=== PATIENT | female | born 1950 | race Caucasian/White ===

== ENCOUNTER → 2017-06-21 | Outpatient (CLI) | payer OTHER ==
[2017-06-21 10:07] LABS: ALBUMIN 3.8 g/dL (3.4-5.0); CALCIUM 9.7 mg/dL (8.5-10.1); CREATININE 6.6 mg/dL (0.6-1.0); GFR 6.3; PHOSPHORUS 6.9 mg/dL (2.6-4.7)
[2017-06-21 10:09] LABS: POTASSIUM 5.5 mmol/L (3.5-5.1)
== END | disposition home or self-care (01) ==
LOC: LAB 09:14
PROVIDERS: ATTEND Internal Medicine Nephrology
DX: N18.5 Chronic kidney disease, stage 5 (principal)
CPT/HCPCS: 36415; 80069

== ENCOUNTER → 2017-06-28 | Outpatient (CLI) | payer OTHER ==
--- NOTE | 2017-06-28 11:27 | RAD ---
Chest, 3 views, 06/28/2017: History: Chronic kidney disease, hypertension PA and lateral views of the chest as well as an apical lordotic view were obtained as requested. The heart size and pulmonary vascularity are normal. There is a calcified granuloma in the right midlung. No acute infiltrates are seen. No apical infiltrate or mass is evident. No pleural fluid is detected. Mild spurring is present in the spine. IMPRESSION: No acute cardiopulmonary abnormality is detected.
== END | disposition home or self-care (01) ==
LOC: RAD 10:15
PROVIDERS: ATTEND Internal Medicine Nephrology
DX: N18.5 Chronic kidney disease, stage 5 (principal); I10 Essential (primary) hypertension
CPT/HCPCS: 71021

== ENCOUNTER 2017-07-13 07:47 | Day surgery (SDC) | payer OTHER ==
[~2017-07-13] VITALS: Ht 172.7 cm; Wt 99.8 kg
[~2017-07-13 07:47] MED LIST: ACET325T9 PO; ALLO100T PO; AMLO5TAB2 PO; ATEN50TA PO; BUPIVAC MPF-EPI 0.5%-1:200000 30 ML VIAL. ONE; FURO40TA4 PO; HEPARIN SODIUM 5,000 UNIT in IV NORMAL SALINE 500ML BAG 500 ML IRR ONE; HYDROmorphone 2 MG/ML VIAL IV PRN; IV RINGERS,LACTATED 1000ML 1,000 ML IV SCH; LIDOCAINE 1% 1 ML SYRINGE. ID PRN; LOSA100T6 PO; MORPHINE SULFATE 2 MG/ML DISP.SYRIN. IV PRN; NEOMY/BACITR/POLYMYXIN OINT PACKET. TP ONE; ONDANSETRON PF 4 MG/2 ML VIAL. IV PRN; PROCHLORPERAZINE 10 MG/2 ML VIAL. IV PRN; SEVE800T9 PO; fentaNYL PF VIAL 100 MCG/2 ML VIAL IV PRN; sodium bicarbonate
[2017-07-13 08:30] LABS: BASO # 0.1 x10^3/uL (0.0-0.2); BASO % 1 % (0-3); EOS % 3 % (0-3); HEMATOCRIT 34.9 % (36.0-47.0); HEMOGLOBIN 11.4 g/dL (12.0-15.5); LYMPH # 1.5 x10^3/uL (1.0-4.8); LYMPH % 15 % (24-48); MEAN CORPUSCULAR HEMOGLOBIN 28 pg (25-35); MEAN CORPUSCULAR HGB CONC 33 g/dL (31-37); MEAN CORPUSCULAR VOLUME 87 fL (79-100); MONO % 5 % (0-9); NEUT % 76 % (31-73); PLATELET COUNT 189 x10^3/uL (140-400); RED BLOOD COUNT 4.03 x10^6/uL (3.50-5.40); WHITE BLOOD COUNT 9.9 x10^3/uL (4.0-11.0)
[2017-07-13 08:40] LABS: ALBUMIN 3.8 g/dL (3.4-5.0); CALCIUM 9.1 mg/dL (8.5-10.1); CREATININE 6.4 mg/dL (0.6-1.0); GFR 6.6; POTASSIUM 4.4 mmol/L (3.5-5.1)
[2017-07-13] MEDS ORDERED: IV NORMAL SALINE 1000ML BAG 1,000 ML IV SCH (08:45)
[2017-07-13] MEDS ORDERED: PROPOFOL 20 ML IV ONE (08:53)
[2017-07-13] MEDS ORDERED: fentaNYL PF VIAL 100 MCG/2 ML VIAL ONE ×2 (08:53→10:42)
[2017-07-13] MEDS ORDERED: LIDOCAINE 2% PF Vial for OR 5 ML VIAL. ONE (08:53)
[2017-07-13] MEDS ORDERED: DESFLURANE 61 TO 120 MINUTES IH ONE (08:53)
[2017-07-13] MEDS ORDERED: DEXAMETHASONE SOD PHOS 20 MG/5 ML VIAL. ONE (08:53)
[2017-07-13] MEDS ORDERED: ONDANSETRON PF 4 MG/2 ML VIAL. ONE (08:53)
[2017-07-13] MEDS ORDERED: ROCURONIUM 100 MG/10 ML VIAL. ONE (08:56)
[2017-07-13] MEDS ORDERED: NEOSTIGMINE 10 MG/10 ML VIAL. ONE (09:36)
[2017-07-13] MEDS ORDERED: GLYCOPYRROLATE 1 MG/5 ML VIAL. ONE (09:36)
--- NOTE | 2017-07-13 11:22 | PDOC ---
BRIEF OPERATIVE NOTE Date: Jul 13, 2017 Pre-Op Diagnosis ESRD Post-Op Diagnosis same, umbilical hernia, adhesions Procedure Performed l/s placement of PD catheter, SULMA, primary repair of umbilical hernia Surgeon Genaro Anesthesia Type: General Blood Loss 20cc IV Fluid 800cc Specimens Obtained umbilical hernia sack Findings umbilical hernia, small bowel adhesions to the lower abdominal wall Complications none IRMA HANLEY MD Jul 13, 2017 11:22
--- NOTE | 2017-07-13 11:23 | DISCH ---
DISCHARGE INSTRUCTIONS Condition on Discharge Condition on Discharge: Stable Activity After Discharge Activity Instructions for Disc: Activity as tolerated, Avoid exertion Lifting Instructions after Dis: No heavy lifting Driving Instructions after Dis: Do not drive today Diet after Discharge Diet after Discharge: Regular Wound Incision Care Wound/Incision Care: Ice to area for comfort Other wound/incision instructi: keep dressin on til visit to dialysis center Follow-Up Follow Up With: Genaro two weeks IRMA HANLEY MD Jul 13, 2017 11:23
[2017-07-13 11:44] VITALS: BP 109/59
[2017-07-13] MEDS ORDERED: ceFAZolin 2GM PREMIX 2 GM/50 ML BAG IV ONE (12:00)
--- NOTE | 2017-07-13 15:31 | OP ---
DATE OF SURGERY: 07/13/2017 PREOPERATIVE DIAGNOSIS: End-stage renal disease. POSTOPERATIVE DIAGNOSES: End-stage renal disease with abdominal adhesions and an umbilical hernia. PROCEDURES: 1. Laparoscopic placement of peritoneal dialysis catheter. 2. Lysis of adhesions. 3. Primary repair of umbilical hernia. SURGEON: Irma Hanley MD ANESTHESIA: General endotracheal. ESTIMATED BLOOD LOSS: 20 mL. IV FLUIDS: 800 mL. INDICATIONS: The patient is a 66-year-old with progressive renal failure requiring now dialysis. She is brought for placement of peritoneal dialysis catheter. OPERATIVE FINDINGS: There were several loops of small bowel that were adherent to the abdominal wall from previous low midline incision for her hysterectomy. An umbilical hernia was present. DESCRIPTION OF PROCEDURE: The patient was brought to the operating suite, given a general endotracheal anesthetic and the abdomen was prepped and draped in usual sterile fashion. An epigastric incision was infiltrated with local anesthetic, sharply incised and a 5 mm Visiport used to gain access into the abdominal cavity, taking care to avoid injury to abdominal contents. Pneumoperitoneum was established, camera inserted, inspection carried out with results as noted above. A second 5 mm port was placed through the infraumbilical incision through the hernia to allow access for a "____ scissor." This was used to carefully takedown adhesions between the small bowel and the abdominal wall, taking care to avoid injury to the bowel itself. This allowed an open pelvis for placement of the peritoneal dialysis catheter. The entry site was infiltrated with local anesthetic, sharply incised. Cook needle introduced. Needle removed and serial dilators were passed through the sheath. The catheter was then threaded through the sheath down into the pelvis and the Dacron cuff was seated just above the peritoneum. The remaining catheter was tunneled through the exit site, which had been outlined with the template preoperatively. We then turned our attention to the umbilical hernia. The 5 mm port site was extended into an infraumbilical incision. The hernia sac was sharply excised. The defect was closed with interrupted inverted [id number]-bj-[id number] PDS. A second ____ repair with 0 Vicryl was placed. Good hemostasis was present. The umbilical skin was tacked to the underlying repair with 3-0 Vicryl. The incision was closed with a subcuticular 4-0 Monocryl. We then flushed the catheter with 500 mL of normal saline, which are readily accepted in just over a minute and a half. Similar amount drained in over a few minutes. The catheter was "packed" with heparinized saline. Incisions closed with subcuticular 4-0 Monocryl. Steri-Strips and sterile dressings applied. The patient awakened from her anesthetic and taken to the recovery room in satisfactory condition. IRMA HANLEY MD DR: ANDREWS/chanel JOB#: [id number] / [id number]
--- NOTE | 2017-07-15 13:58 | PATHOLOGY ---
PATHOLOGY REPORT * * * * * * * * FINAL DIAGNOSIS: Segments of focal mesothelial-lined fibromembranous and fibroadipose tissue, umbilical hernia repair: - Hernia sac. (JPM:mgnita; 07/15/2017) REPORT ELECTRONICALLY SIGNED BY: Parvez Renee M.D. DATE/TIME: 07/15/2017 13:58 * * * * * * * * GROSS PATHOLOGY: Received in formalin labeled "Glory Galvan, umbilical hernia sac," are two segments of fibroadipose tissue admixed with fibromembranous tissue measuring 2.9 x 2.6 x 1.8 cm in aggregate dimensions. No nodules or lesions are identified. Bulker tissue is submitted in cassette A1. (DAC; 07/14/2017) INITIAL CPT CODE(S): A; 40044 Professional services performed by [facility] [place] [address] Technical services performed by [facility] at [address] [place] [address] [address] [address]. SPECIMEN(S) RECEIVED: A.Umbilical hernia sac CLINICAL HISTORY: Umbilical hernia PATIENT: GLORY GALVAN /AGE: 1211/27/1950 (Age: 66) PATIENT #: [id number] ALT CASE #: SPECIMEN COLLECTION DATE: 07/13/2017 SPECIMEN RECEIVED DATE: 07/13/2017 [facility] - [address] [place] [address] - PHONE: [phone] * * * END OF REPORT * * *
== END 2017-07-13 12:24 | disposition home or self-care (01) ==
LOC: SURG 07:47
PROVIDERS: ATTEND Surgery
DX: I12.0 Hypertensive chronic kidney disease with stage 5 chronic kidney disease or end stage renal disease (principal); N18.6 End stage renal disease; K66.0 Peritoneal adhesions (postprocedural) (postinfection); K42.9 Umbilical hernia without obstruction or gangrene; Z90.710 Acquired absence of both cervix and uterus; Z88.1 Allergy status to other antibiotic agents
CPT/HCPCS: 36415; 49324; 49585; 80048; 82040; 85025; C1769; J0690; J1100; J1644; J2405; J2704; J2710; J3010; J3490; J7030; J7040; J7120; J2001

== ENCOUNTER → 2017-12-13 | Day surgery (SDC) | payer OTHER ==
[~2017-12-13] MED LIST changes: -ACET325T9 PO; -ALLO100T PO; -AMLO5TAB2 PO; -ATEN50TA PO; -BUPIVAC MPF-EPI 0.5%-1:200000 30 ML VIAL. ONE; -FURO40TA4 PO; -HEPARIN SODIUM 5,000 UNIT in IV NORMAL SALINE 500ML BAG 500 ML IRR ONE; +HYDROmorphone 2 MG/ML VIAL IV; -HYDROmorphone 2 MG/ML VIAL IV PRN; +IV RINGERS,LACTATED 1000ML 1,000 ML IV; -IV RINGERS,LACTATED 1000ML 1,000 ML IV SCH; -LIDOCAINE 1% 1 ML SYRINGE. ID PRN; +LIDOCAINE 1% PF 2 ML VIAL. ID; +LIDOCAINE 2% PF Vial for OR 5 ML VIAL.; -LOSA100T6 PO; +MORPHINE SULFATE 2 MG/ML DISP.SYRIN. IV; -MORPHINE SULFATE 2 MG/ML DISP.SYRIN. IV PRN; -NEOMY/BACITR/POLYMYXIN OINT PACKET. TP ONE; +ONDANSETRON PF 4 MG/2 ML VIAL. IV; -ONDANSETRON PF 4 MG/2 ML VIAL. IV PRN; +PROCHLORPERAZINE 10 MG/2 ML VIAL. IV; -PROCHLORPERAZINE 10 MG/2 ML VIAL. IV PRN; +PROPOFOL 40 ML IV; -SEVE800T9 PO; +fentaNYL PF VIAL 100 MCG/2 ML VIAL IV; -fentaNYL PF VIAL 100 MCG/2 ML VIAL IV PRN; -sodium bicarbonate
[2017-12-13] MEDS: IV NORMAL SALINE 1000ML BAG 1,000 ML IV (10:44)
== END | disposition home or self-care (01) ==
LOC: ENDOS 10:11
DX: Z12.11 Encounter for screening for malignant neoplasm of colon (principal); K57.30 Diverticulosis of large intestine without perforation or abscess without bleeding; Z90.710 Acquired absence of both cervix and uterus; Z88.8 Allergy status to other drugs, medicaments and biological substances
CPT/HCPCS: 45378; J2704

== ENCOUNTER → 2017-12-20 | Outpatient (CLI) | payer MEDICARE, OTHER | END | disposition home or self-care (01) | LOC: ECHO 09:34 | DX: I07.1 Rheumatic tricuspid insufficiency (principal); I35.0 Nonrheumatic aortic (valve) stenosis; R01.1 Cardiac murmur, unspecified | CPT/HCPCS: 93306 ==

== ENCOUNTER → 2018-02-14 | Outpatient (CLI) | payer MEDICARE, OTHER ==
[2018-02-14] MEDS: REGADENOSON 0.4 MG/5 ML DISP.SYRIN. IV (10:27)
== END | disposition home or self-care (01) ==
LOC: NM 08:36
DX: I12.0 Hypertensive chronic kidney disease with stage 5 chronic kidney disease or end stage renal disease (principal); N18.6 End stage renal disease; R01.1 Cardiac murmur, unspecified; Z99.2 Dependence on renal dialysis
CPT/HCPCS: 78452; 93017; 96374; 96375; 96376; A9500; J2785

== ENCOUNTER 2018-04-15 07:48 | Outpatient (CLI) | payer MEDICARE, OTHER ==
[2018-04-15] MEDS ORDERED: CONTRAST GIVEN MC (10:00)
[2018-04-15] MEDS: IOHEXOL 240 MG/ML 50ML VIAL. IT (10:00)
== END 2018-04-15 09:15 | disposition home or self-care (01) ==
LOC: INTRAD 07:48
DX: T85.691A Other mechanical complication of intraperitoneal dialysis catheter, initial encounter (principal); Y83.8 Other surgical procedures as the cause of abnormal reaction of the patient, or of later complication, without mention of misadventure at the time of the procedure; Y92.89 Other specified places as the place of occurrence of the external cause; I10 Essential (primary) hypertension; E66.9 Obesity, unspecified; Z68.34 Body mass index [BMI] 34.0-34.9, adult; Z90.710 Acquired absence of both cervix and uterus; Z98.890 Other specified postprocedural states; M19.90 Unspecified osteoarthritis, unspecified site; Z88.1 Allergy status to other antibiotic agents; I34.0 Nonrheumatic mitral (valve) insufficiency
CPT/HCPCS: 49400; 74190; C1769; Q9966

== ENCOUNTER → 2019-02-13 | Outpatient (CLI) | payer OTHER, MEDICARE ==
[2018-04-15 08:10] VITALS: BP 125/65
[~2019-02-13] MED LIST changes: +ACET325T9 PO; +ALLO100T PO; +AMLO5TAB10 PO; +ATEN50TA PO; +CINA30TA2 PO; +FISH1CAP PO; +FOLI0.8T3 PO; +FURO40TA4 PO; -HYDROmorphone 2 MG/ML VIAL IV; -IV RINGERS,LACTATED 1000ML 1,000 ML IV; -LIDOCAINE 1% PF 2 ML VIAL. ID; -LIDOCAINE 2% PF Vial for OR 5 ML VIAL.; +LOSA100T14 PO; -MORPHINE SULFATE 2 MG/ML DISP.SYRIN. IV; -ONDANSETRON PF 4 MG/2 ML VIAL. IV; -PROCHLORPERAZINE 10 MG/2 ML VIAL. IV; -PROPOFOL 40 ML IV; +REGADENOSON 0.4 MG/5 ML DISP.SYRIN. IV ONE; +SEVE800T9 PO; -fentaNYL PF VIAL 100 MCG/2 ML VIAL IV; +sodium bicarbonate
--- NOTE | 2019-02-13 16:12 | RAD ---
MR#: [id number] Date of Study: 02/13/2019 Ordering Physician: ROBINSON MCKOY, Referring Physician: GABRIELLE CUADRA Tech: Samson Joseph RT (R) (N) APPROVED REPORT Test Type: Pharmacological Stress Nurse/Tech: Deneen Mccoy R.N. Test Indications: screening for kidney transplant list Cardiac History: htn, peritoneal dialysis Medications: see ehr Medical History: see ehr Resting ECG: sr Resting Heart Rate: 54 bpm Resting Blood Pressure: 137/59mmHg Pretest Chest Pain: No chest pain Nurse/Tech Notes lungs cta, heart tones regular Consent: The procedure was explained to the patient in lay terms. Informed consent was witnessed. Ady eout was entered into [employer]. History and Stress Test performed by JEFFY Gonzalez Pharm. Details Pharmacologic stress testing was performed using 0.4mg per 5ml of regadenoson given intravenously ove r 7-10 seconds. Stress Symptoms No chest pain or symptoms. POST EXERCISE Reason for Termination: Infusion complete Target HR: No Max HR: 91 bpm Max Blood Pressure: 115/52mmHg Chest Pain: No. Arrhythmia: No. ST Change: No. INTERPRETATION Stress EKG Conclusion: The resting EKG shows a sinus rhythm with nonspecific ST-T wave changes. The stress EKG shows no significant changes from baseline. No EKG evidence of stress-induced ischemia. Imaging Protocol IMAGE PROTOCOL: Rest Tc-99m/stress Tc-99m 1 day Rest: Stress: Viability: Radiopharm.Tc99m [id number] Sestamibi Dose11.8mCi 33mCi Img Date 02/13/2019 02/13/2019 Inj-Img [id number]. 60min. Rest Admin Site:IV - Right AntecubitalAdministrator:JEFFY Gonzalez Stress Admin Site: IV - Right AntecubitalAdministrator: JEFFY Gonzalez STRESS DATA End Diast. Vol.125.0mlAv. Heart Rate59.0bpm End Syst. Vol.22.0mlCO Index BSA0.0L/min Myocardial Gegv687.0gEject. Vfoucijb84.0% Stress Rates Pk. Fill Rate2.35EDV/secLVtime Pk. Fill 160.32msec Pk. Empty Rate3.35ESV/secLVtime Pk. Mlsas203.51msec 1/3 Pk. Fill1.56EDV/sec Stress Scores Regional WT0.00Summed WT0.00 Regional WM0.00Summed WM0.00 LV Perfusion The stress scans showed mild apical thinning. The rest scans showed mild apical thinning. Nuclear imaging shows no reversible ischemia. Nuclear imaging shows mild fixed apical thinning with normal LV systolic function consistent with a t echnical artifact. Wall Motion Normal left ventricular size and systolic function with an ejection fraction of greater than 70%. LV Perf. Quant 17 Seg. SSS7.00 17 Seg. SRS7.00 17 Seg. SDS1.00 Stress Defect Extent (% LAD)11.90Rest Defect Extent (% LAD)20.60Rev. Defect Extent (% LAD)4.40 Stress Defect Extent (% LCX) 23.80Rest Defect Extent (% LCX)47.50Rev. Defect Extent (% LCX)0.00 Stress Defect Extent (% RCA)0.00Rest Defect Extent (% RCA)0.00Rev. Defect Extent (% RCA)0.00 Stress Defect Extent (% EYAL)12.00Rest Defect Extent (% EYAL)16.10Rev. Defect Extent (% EYAL)1.50 Conclusion 1. No EKG evidence of stress induced ischemia. 2. Nuclear imaging shows no reversible ischemia. 3. Nuclear imaging shows slight fixed apical wall thinning with normal LV systolic function consisten t with a technical artifact. 4. Normal left ventricular systolic function with an ejection fraction of greater than 70%. 5. Low to moderately low risk Lexiscan nuclear stress test. Signed by : Robinson Mckoy MD Electronically Approved : 02/13/2019 16:11:59
== END | disposition home or self-care (01) ==
LOC: NM 09:08
PROVIDERS: ATTEND Internal Medicine Cardiovascular Disease
DX: I12.9 Hypertensive chronic kidney disease with stage 1 through stage 4 chronic kidney disease, or unspecified chronic kidney disease (principal); N18.6 End stage renal disease
CPT/HCPCS: 78452; 93017; 96374; A9500; J2785

== ENCOUNTER → 2020-05-20 | Outpatient (CLI) | payer MEDICARE, OTHER ==
[2018-04-15 08:10] VITALS: BP 125/65
--- NOTE | 2020-05-20 12:19 | RAD ---
MR#: [id number] Date of Study: 05/20/2020 Ordering Physician: PAT GONSALVES, Referring Physician: GABRIELLE ALANIS Tech: RT Femi (R) (N) APPROVED REPORT Test Type: Pharmacological Stress Nurse/Tech: Deneen Mccoy R.N. Test Indications: kidney donor waiting list Cardiac History: htn, dialysis Medications: see ehr Medical History: see ehr Resting ECG: SR Resting Heart Rate: 56 bpm Resting Blood Pressure: 123/60mmHg Pretest Chest Pain: No chest pain Nurse/Tech Notes lungs cta, heart tones regular Consent: The procedure was explained to the patient in lay terms. Informed consent was witnessed. Ady eout was entered into [employer]. History and Stress Test performed by JEFFY Gonzalez Pharm. Details Pharmacologic stress testing was performed using 0.4mg per 5ml of regadenoson given intravenously ove r 7-10 seconds. Stress Symptoms No chest pain or symptoms. POST EXERCISE Reason for Termination: Infusion complete Target HR: No Max HR: 87 bpm Max Blood Pressure: 128/53mmHg Chest Pain: No. Arrhythmia: Yes. occasional PAC noted ST Change: No. INTERPRETATION Stress EKG Conclusion: No evidence of stress induced EKG changes Imaging Protocol IMAGE PROTOCOL: Rest Tc-99m/stress Tc-99m 1 day Rest: Stress: Viability: Radiopharm.Tc99m [id number] Sestamibi Fbxq01fBr 33mCi Duration 13.5min. 13min. Img Date 05/20/2020 05/20/2020 Inj-Img Gapx09pre. 60min. Rest Admin Site:IV - Right AntecubitalAdministrator:RT Femi (Pasha)(N) Stress Admin Site: IV - Right AntecubitalAdministrator: JEFFY Gonzalez STRESS DATA End Diast. Vol.138.0mlLVEDV index BSA65.0ml End Syst. Vol.41.0mlLVESV index BSA19.0ml Myocardial Uwep983.0gEject. Xjusmfxm54.0% Stress Scores Regional WT0.00Summed WT1.00 Regional WM0.00Summed WM0.00 LV Perfusion There is a moderate sized FIXED basal anterior, basal to mid anteroseptal defect suggestive of prior infarct without any active ischemia. Wall Motion Normal EF at 55% LV Perf. Quant 17 Seg. SSS8.00 17 Seg. SRS9.00 17 Seg. SDS1.00 Stress Defect Extent (% LAD)13.80Rest Defect Extent (% LAD)28.10Rev. Defect Extent (% LAD)0.00 Stress Defect Extent (% LCX) 20.00Rest Defect Extent (% LCX)13.80Rev. Defect Extent (% LCX)6.30 Stress Defect Extent (% RCA)0.00Rest Defect Extent (% RCA)0.00Rev. Defect Extent (% RCA)0.00 Stress Defect Extent (% EYAL)9.10Rest Defect Extent (% EYAL)12.60Rev. Defect Extent (% EYAL)1.50 Other Information Quality:Average Risk Assessment: Low-Moderate Risk Conclusion 1. No evidence of stress induced EKG changes. 2. Fixed basal anterior wall defect suggestive of prior infarct w/o ischemia 3. Normal EF of 55% 4. Motion artifact 5. Low to moderate risk study Signed by : Pat Gonsalves, Electronically Approved : 05/20/2020 12:18:54
== END | disposition home or self-care (01) ==
LOC: NM 10:37
PROVIDERS: ATTEND Internal Medicine Cardiovascular Disease
DX: R06.00 Dyspnea, unspecified (principal)
CPT/HCPCS: 78452; 93017; A9500; J2785